=== PATIENT | male | born 1965 | race Caucasian/White ===

== ENCOUNTER 2017-09-22 00:08 | Emergency (ER) | payer BC ==
[2017-09-22 00:16] VITALS: RESP 18
[2017-09-22] MEDS ORDERED: SODIUM CHLORIDE 0.9% 1,000 ML IV STA (00:34)
[2017-09-22] MEDS ORDERED: PANTOPRAZOLE 40 MG/10 ML VIAL IVP STA (00:47)
[2017-09-22] MEDS ORDERED: MAG HYDROX/AL HYDROX/SIMETH 30 ML, HYOSCYAMINE ELIXIR 10 ML, CIMETIDINE HCL 300 MG PO STA ×3 (00:47)
[2017-09-22] MEDS ORDERED: ONDANSETRON 4 MG/2 ML VIAL IVP STA (00:47)
[2017-09-22] MEDS ORDERED: KETOROLAC 30 MG/ML 1 ML VIAL IVP STA (00:47)
[2017-09-22 00:50] LABS: Basophils % (A) 0 %; Eosinophils # (A) 0.1 k/uL (0-0.7); Eosinophils % (A) 2 %; HCT 46.3 % (39.0-53.0); HGB 15.8 gm/dL (13.0-17.5); Lymphocytes # (A) 2.3 k/uL (1.0-4.8); Lymphocytes % (A) 34 %; MCHC 34.2 g/dL (31.0-37.0); MCV 84.9 fL (80.0-100.0); Mean Platelet Volume 8.7; Monocytes # (A) 0.6 k/uL (0-1.0); Monocytes % (A) 9 %; Neutrophils # (A) 3.6 k/uL (1.3-7.7); Neutrophils % (A) 54 %; Platelet Count 185 k/uL (150-450); RBC 5.46 m/uL (4.30-5.90); RDW 13.6 % (11.5-15.5); WBC 6.7 k/uL (3.8-10.6)
--- NOTE | 2017-09-22 00:58 | ED ---
Abdominal Pain HPI - General Chief Complaint: Abdominal Pain Stated Complaint: Upper Gastric Pain Time Seen by Provider: 09/22/17 00:19 Source: patient, RN notes reviewed, old records reviewed Mode of arrival: ambulatory Limitations: no limitations - History of Present Illness Initial Comments: This patient is a 52 year old mael with CC of epigastric tenderness and bloating He report that it started this evening. Patient reports that he has had increased belching. Denies chest pain or shortness of breath. REports that he has nausea. He reports family history of heart disease and is concerned of his heart. Patient has no vomiting, and normal bowel movements. Patient reports that the pain radiates toward his back between shoulders occasionally. - Related Data Previous Rx's Medication Instructions Recorded Famotidine [Pepcid] 20 mg PO BID #20 tablet 09/22/17 Ondansetron Odt [Zofran Odt] 4 mg PO Q8HR PRN #20 tab 09/22/17 Allergies Allergy/AdvReac Type Severity Reaction Status Date / Time No Known Allergies Allergy Verified 09/22/17 00:20 Review of Systems ROS Statement: Those systems with pertinent positive or pertinent negative responses have been documented in the HPI. ROS Other: All systems not noted in ROS Statement are negative. 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 Past Psychological History: No Psychological Hx Reported Smoking Status: Never smoker Past Alcohol Use History: Rare Past Drug Use History: None Reported General Exam - General Exam Comments Initial Comments: This patient is a well appearing 52 year old male, no distress. Limitations: no limitations General appearance: alert, in no apparent distress Head exam: Present: atraumatic, normocephalic, normal inspection Eye exam: Present: normal appearance, PERRL, EOMI. Absent: scleral icterus, conjunctival injection, periorbital swelling ENT exam: Present: normal exam, mucous membranes moist Neck exam: Present: normal inspection. Absent: tenderness, meningismus, lymphadenopathy Respiratory exam: Present: normal lung sounds bilaterally. Absent: respiratory distress, wheezes, rales, rhonchi, stridor GI/Abdominal exam: Present: soft, tenderness (minimal epigastric tenderness), normal bowel sounds. Absent: distended, guarding, rebound, rigid Extremities exam: Present: normal inspection, full ROM, normal capillary refill. Absent: tenderness, pedal edema, joint swelling, calf tenderness Back exam: Present: normal inspection Neurological exam: Present: alert, oriented X3, CN II-XII intact Course Vital Signs 09/22/17 09/22/17 00:10 02:57 Temperature 97.5 F L 97.9 F Pulse Rate 80 83 Respiratory 18 18 Rate Blood Pressure 141/98 146/89 O2 Sat by Pulse 96 97 Oximetry Medical Decision Making - Medical Decision Making This patient is a 52 year old mael with CC of epigastric tenderness and bloating He report that it started this evening. Patient reports that he has had increased belching. Denies chest pain or shortness of breath. REports that he has nausea. He reports family history of heart disease and is concerned of his heart. Patient has no vomiting, and normal bowel movements. Patient reports that the pain radiates toward his back between shoulders occasionally. Patient was given IV fluids and lab work obtained. He has mild epigastric tenderness. REports that he did not eat anything abnormal for his typical diet. At this time patient EKG was reviewed and normal. CXR and KUB show no acute changes. KUB does show moderate stool burden. Labs were reviewed and within normal limitis. Patient has no fever or chills. Discussed time frame of symptoms not concerned for cardiac etiology with negative cardiac enzyme. Disussed appropriate follow up, and I belive patient has either gastritis or biliary colic. Discussed clear liquid diet and to follow up with PCP. - Lab Data Result diagrams: 09/22/17 00:32 09/22/17 00:32 Lab Results 09/22/17 09/22/17 09/22/17 Range/Units 00:32 00:32 00:32 WBC 6.7 (3.8-10.6) k/uL RBC 5.46 (4.30-5.90) m/uL Hgb 15.8 (13.0-17.5) gm/dL Hct 46.3 (39.0-53.0) % MCV 84.9 (80.0-100.0) fL MCH 29.0 (25.0-35.0) pg MCHC 34.2 (31.0-37.0) g/dL RDW 13.6 (11.5-15.5) % Plt Count 185 (150-450) k/uL Neutrophils % 54 % Lymphocytes % 34 % Monocytes % 9 % Eosinophils % 2 % Basophils % 0 % Neutrophils # 3.6 (1.3-7.7) k/uL Lymphocytes # 2.3 (1.0-4.8) k/uL Monocytes # 0.6 (0-1.0) k/uL Eosinophils # 0.1 (0-0.7) k/uL Basophils # 0.0 (0-0.2) k/uL PT (9.0-12.0) sec INR (<1.2) APTT (22.0-30.0) sec D-Dimer (<0.60) mg/L FEU Sodium 141 (137-145) mmol/L Potassium 4.1 (3.5-5.1) mmol/L Chloride 99 (98-107) mmol/L Carbon Dioxide 29 (22-30) mmol/L Anion Gap 13 mmol/L BUN 28 H (9-20) mg/dL Creatinine 1.10 (0.66-1.25) mg/dL Est GFR (CKD-EPI)AfAm >90 (>60 ml/min/1.73 sqM) Est GFR (CKD-EPI)NonAf 78 (>60 ml/min/1.73 sqM) Glucose 98 (74-99) mg/dL Calcium 9.8 (8.4-10.2) mg/dL Total Bilirubin 0.7 (0.2-1.3) mg/dL AST 38 (17-59) U/L ALT 93 H (21-72) U/L Alkaline Phosphatase 58 (38-126) U/L Troponin I <0.012 (0.000-0.034) ng/mL Total Protein 7.4 (6.3-8.2) g/dL Albumin 4.6 (3.5-5.0) g/dL Amylase 102 (30-110) U/L Lipase 184 (23-300) U/L 09/22/17 Range/Units 00:32 WBC (3.8-10.6) k/uL RBC (4.30-5.90) m/uL Hgb (13.0-17.5) gm/dL Hct (39.0-53.0) % MCV (80.0-100.0) fL MCH (25.0-35.0) pg MCHC (31.0-37.0) g/dL RDW (11.5-15.5) % Plt Count (150-450) k/uL Neutrophils % % Lymphocytes % % Monocytes % % Eosinophils % % Basophils % % Neutrophils # (1.3-7.7) k/uL Lymphocytes # (1.0-4.8) k/uL Monocytes # (0-1.0) k/uL Eosinophils # (0-0.7) k/uL Basophils # (0-0.2) k/uL PT 10.8 (9.0-12.0) sec INR 1.1 (<1.2) APTT 24.4 (22.0-30.0) sec D-Dimer 0.20 (<0.60) mg/L FEU Sodium (137-145) mmol/L Potassium (3.5-5.1) mmol/L Chloride (98-107) mmol/L Carbon Dioxide (22-30) mmol/L Anion Gap mmol/L BUN (9-20) mg/dL Creatinine (0.66-1.25) mg/dL Est GFR (CKD-EPI)AfAm (>60 ml/min/1.73 sqM) Est GFR (CKD-EPI)NonAf (>60 ml/min/1.73 sqM) Glucose (74-99) mg/dL Calcium (8.4-10.2) mg/dL Total Bilirubin (0.2-1.3) mg/dL AST (17-59) U/L ALT (21-72) U/L Alkaline Phosphatase (38-126) U/L Troponin I (0.000-0.034) ng/mL Total Protein (6.3-8.2) g/dL Albumin (3.5-5.0) g/dL Amylase (30-110) U/L Lipase (23-300) U/L 09/22/17 02:00 EKG shows normal sinus rhythm, inferior infarct age undetermined. Ventricular rate of 78 bpm. Verbal 1:30 milliseconds. QRS duration 80 ms. QT QTc is 382/435 ms. No evidence of ST elevation or T-wave inversion. No evidence of a chill or ventricular arrhythmias. - Radiology Data Radiology results: report reviewed CXR is reviewed to be normal. KUB shows fecal stasis. Disposition Clinical Impression: Gastritis Disposition: HOME SELF-CARE Condition: Good Instructions: Gastritis (ED), Diet for Stomach Ulcers and Gastritis (ED) Additional Instructions: Patient advised a clear liquid diet and bland diet for the next 24-48 hours. Patient should follow-up with primary care provider. Take the medication as prescribed. Return to the emergency department if any alarming signs or symptoms occur. Patient should avoid coffee and acidic foods. Prescriptions: Famotidine [Pepcid] 20 mg PO BID #20 tablet Ondansetron Odt [Zofran Odt] 4 mg PO Q8HR PRN #20 tab PRN Reason: Nausea Referrals: Mahesh Tatum DO [Primary Care Provider] - 1-2 days Time of Disposition: 02:31
[2017-09-22 01:02] LABS: ALT 93 U/L (21-72); AST 38 U/L (17-59); Albumin 4.6 g/dL (3.5-5.0); Alkaline Phosphatase 58 U/L (38-126); Amylase 102 U/L (30-110); Anion Gap 13 mmol/L; Blood Urea Nitrogen 28 mg/dL (9-20); Calcium 9.8 mg/dL (8.4-10.2); Carbon Dioxide 29 mmol/L (22-30); Chloride 99 mmol/L (98-107); Glucose 98 mg/dL (74-99); Lipase 184 U/L (23-300); Potassium 4.1 mmol/L (3.5-5.1); Sodium 141 mmol/L (137-145); Total Bilirubin 0.7 mg/dL (0.2-1.3); Total Protein 7.4 g/dL (6.3-8.2)
--- NOTE | 2017-09-22 01:15 | XR ---
EXAM: XR Abdomen, 1 View CLINICAL HISTORY: ITS.REASON XR Reason: abdominal pain TECHNIQUE: Frontal supine view of the abdomen/pelvis. COMPARISON: No relevant prior studies available. IMPRESSION: No bowel obstruction. Extensive stool seen throughout the ascending colon.
--- NOTE | 2017-09-22 01:16 | XR ---
EXAM: XR Chest, 2 Views CLINICAL HISTORY: ITS.REASON XR Reason: Pain TECHNIQUE: Frontal and lateral views of the chest. COMPARISON: No relevant prior studies available. IMPRESSION: No acute cardiopulmonary process. History of prior cardiac surgery (appears to be a plug).
[2017-09-22 02:09] LABS: D-Dimer 0.2 mg/L FEU (<0.60)
[2017-09-22 02:13] LABS: INR 1.1 (<1.2); Partial Thromboplastin Time 24.4 sec (22.0-30.0); Prothrombin Time 10.8 sec (9.0-12.0)
[2017-09-22 02:58] VITALS: BP 146/89; PULSE 83; TEMP 97.9
== END 2017-09-22 02:58 | disposition home or self-care (01) ==
LOC: EC 00:08
DX: K29.70 Gastritis, unspecified, without bleeding (principal); Z86.018 Personal history of other benign neoplasm
CPT/HCPCS: 36415; 85379; 80053; 82150; 83690; 84484; 85025; 85610; 85730; 71046; 74018; 99284; 96374; 96375 ×2; 96361; J2405; J1885; C9113